=== PATIENT | male | born 1950 | race Caucasian/White ===

== ENCOUNTER 2025-01-14 09:50 | Day surgery (SDC) | payer MEDICARE, OTHER, SELFPAY ==
[2025-01-14] VITALS (11 sets, daily range): BP systolic 121–161; BP diastolic 66–118; BMI 39.6
[2025-01-14 11:05] LABS: Glucose - Point of Care 100 mg/dl (70-99)
[2025-01-14] MEDS: LOW STRENGTH ASPIRIN 324 MG PO (11:24)
[2025-01-14 14:38] LABS: Glucose - Point of Care 91 mg/dl (70-99)
--- NOTE | 2025-01-14 18:38 | ITS.CL.PN ---
Stamping Machine Operator - Procedure Note
Procedure
Procedure Note:
CARDIAC CATHETERIZATION REPORT
Date of Procedure: 01/14/2025
Referring: Dr. Skyler Agustin MD
Indication: ventricular tachycardia detected on wearable campus monitor
PROCEDURE(S)
1. left heart catheterization
2. coronary angiography
ACCESS: 6F right radial artery (closure: radial band)
CATHETERS
1. 6F JR4
2. 6F JL3.5
MODERATE SEDATION: 25 minutes of moderate sedation was utilized. An independent medical physics researcher was present to assist with and help manage the patient's level of consciousness and physiologic status.
HEMODYNAMIC DATA
LV 103/12 (EDP 17) mmHg
AO 106/62 (mean 78) mmHg
CORONARY ANGIOGRAPHY
Dominance: Right
LM: Large vessel with mild, eccentric, 30 to 40% ostial tapering best seen in the [place] cranial projection. Normal contrast reflux and no pressure dampening noted.
LAD: Large vessel giving rise to a moderate caliber D1, small D2, moderate caliber D3. There are mild luminal irregularities only.
LCx: Large vessel giving rise to a moderate caliber OM1. There is mild diffuse disease.
RCA: Large vessel giving rise to a large RPDA and several moderate caliber RPL branches. There is diffuse mild disease.
RADIATION: dose 465 mGy; DAP 42 Gy*cm2; fluoroscopy time 4.0 min
CONCLUSIONS
1. Nonobstructive coronary artery disease as described with mild ostial left main tapering and otherwise mild luminal irregularities only.
2. Mildly elevated LV filling pressure and no aortic stenosis.
RECOMMENDATIONS
1. Aggressive primary prevention of coronary artery disease
2. Medical management of NSVT not related to obstructive coronary artery disease
Copy to: Dr. Skyler Agustin MD (prep room supervisor); Dr. Yenifer Ballesteros MD (PCP)
Signed: Jesse Kelly MD, PhD
== END 2025-01-14 17:05 | disposition home or self-care (01) ==
LOC: CATH 09:50
PROVIDERS: ATTENDING PHYSICIAN Student in an Organized Health Care Education/Training Program; FAMILY PHYSICIAN Internal Medicine; OTHER PHYSICIAN Internal Medicine Cardiovascular Disease
DX: I25.10 Atherosclerotic heart disease of native coronary artery without angina pectoris (principal); I47.20 Ventricular tachycardia, unspecified; I08.1 Rheumatic disorders of both mitral and tricuspid valves; I10 Essential (primary) hypertension; E78.5 Hyperlipidemia, unspecified; Z86.73 Personal history of transient ischemic attack (TIA), and cerebral infarction without residual deficits; E11.9 Type 2 diabetes mellitus without complications; K21.9 Gastro-esophageal reflux disease without esophagitis; Z87.891 Personal history of nicotine dependence; E66.9 Obesity, unspecified; Z68.37 Body mass index [BMI] 37.0-37.9, adult; Z79.01 Long term (current) use of anticoagulants; Z79.02 Long term (current) use of antithrombotics/antiplatelets; Z79.85 Long-term (current) use of injectable non-insulin antidiabetic drugs
CPT/HCPCS: 99152; 99153; C1894; 82962; 93005; 93458; Q9967